=== PATIENT | female | born 1985 | race African-American/Black ===

== ENCOUNTER 2023-03-10 09:58 | Outpatient (CLI) | payer OTHER | END 2023-03-10 09:59 | disposition home or self-care (01) | LOC: CSHLAB 09:58 | PROVIDERS: ATTEND Family Medicine | DX: Z01.818 Encounter for other preprocedural examination (principal); D25.9 Leiomyoma of uterus, unspecified; N92.0 Excessive and frequent menstruation with regular cycle; N94.6 Dysmenorrhea, unspecified | CPT/HCPCS: 80048; 84703; 85027; 86850; 86900; 86901; 93005; 93010 ==